=== PATIENT | female | born 1990 | race African-American/Black ===

== ENCOUNTER 2018-04-15 16:58 | Emergency (ER) | payer OTHER ==
[~2018-04-15] VITALS: Ht 162.6 cm; Wt 58.1 kg
[~2018-04-15 16:58] MED LIST: CITRATE OF MAG296 ML PO; CLARITIN10 MG PO; COLACE100 MG PO; DOXYCYCLINE 10100 MG PO; FLAGYL500 MG PO; FLONASE 0.05%50 MCG NASAL; HYDROCODONE-AP1 EAC6 PO; IBUPROFEN 800800 M1 PO; IRON325 PO; NORCO 5-325 TA1 EACH PO; TRAZODONE HCL50 MG PO; ZOLOFT25 MG PO
[2018-04-15] MEDS ORDERED: MOBIC15 MG PO (17:32)
[2018-04-15] MEDS ORDERED: MAGIC MOUTHWASH SWISH&SPIT (17:32)
== END 2018-04-15 17:59 | disposition home or self-care (01) ==
LOC: ER 16:58
DX: K05.10 Chronic gingivitis, plaque induced (principal); F32.9 Major depressive disorder, single episode, unspecified

== ENCOUNTER 2019-06-29 22:02 | Emergency (ER) | payer OTHER ==
[~2019-06-29] VITALS: Ht 165.1 cm; Wt 55.8 kg
[~2019-06-29 22:02] MED LIST changes: +MAGIC MOUTHWASH SWISH&SPIT; +MOBIC15 MG PO
[2019-06-29 22:32] LABS: URINE BILIRUBIN 1+ (Negative); URINE BLOOD 1+ (Negative); URINE CLARITY CLEAR; URINE COLOR YELLOW; URINE GLUCOSE-RANDOM* NEGATIVE (Negative); URINE KETONES TRACE (Negative); URINE LEUKOCYTES-REFLEX NEGATIVE (Negative); URINE NITRITE-REFLEX NEGATIVE (Negative); URINE PROTEIN (DIPSTICK) TRACE (Negative); URINE SPECIFIC GRAVITY >= 1.030 (1.005-1.035); URINE UROBILINOGEN 0.2 E.U./dl (0.2-1.0)
[2019-06-29 22:50] LABS: BACTERIA-REFLEX 1-9 Few /HPF (None Seen); CASTS None Seen /LPF (None Seen); CRYSTALS None Seen /LPF (None Seen); MUCUS >6 Heavy strn/LPF (None Seen); SQUAMOUS 4-10 Moderate /LPF (0-3); URINE RBC 3-10 Few /HPF (0-2); URINE WBC-REFLEX 0-5 Rare /HPF (0-5)
[2019-06-29 23:56] LABS: ABSOLUTE NEUTROPHILS 2.4 thou/uL (1.4-8.2); BASOPHILS 1.4 % (0.0-2.0); EOSINOPHILS 2.3 % (0.0-3.0); HEMATOCRIT 31.5 % (37.0-47.0); HEMOGLOBIN 10.5 gm/dL (12.0-15.0); LYMPHOCYTES 29.6 % (24.0-44.0); MCH 29.2 pg (26.0-34.0); MCHC 33.3 g/dL (28.0-37.0); MCV 87.6 fL (80.0-100.0); MONOCYTES 10.6 % (1.0-8.0); PLATELET COUNT 251 thou/uL (150-400); POLYS 56.1 % (36.0-66.0); RDW 13.4 % (10.5-14.5); WBC 4.4 thou/uL (4.0-11.0)
[2019-06-30 00:05] LABS: CALCIUM 9.1 mg/dL (8.5-10.1); CREATININE 0.9 mg/dL (0.6-1.0); POTASSIUM 3.1 mmol/L (3.5-5.1)
[2019-06-30 00:11] LABS: ALBUMIN 3.9 g/dL (3.4-5.0); TOTAL BILIRUBIN 0.5 mg/dL (<0.1-1.0); TOTAL PROTEIN 7.2 g/dL (6.4-8.2)
[2019-06-30 02:13] VITALS: BP 88/61
[2019-06-30] MEDS ORDERED: IBUPROFEN 600600 M1 PO (02:30)
[2019-06-30] MEDS ORDERED: ZOFRAN ODT4 MG PO (02:30)
== END 2019-06-30 02:50 | disposition home or self-care (01) ==
LOC: ER 22:02
PROVIDERS: Physician Assistant
DX: N93.8 Other specified abnormal uterine and vaginal bleeding (principal); F32.9 Major depressive disorder, single episode, unspecified